=== PATIENT | male | born 1955 ===

== ENCOUNTER 2022-07-18 10:04 | Day surgery (SDC) | payer BC ==
[~2022-07-18] VITALS: Ht 172.7 cm; Wt 76.3 kg
[~2022-07-18 10:04] MED LIST: LEVSOD100 PO
--- NOTE | 2022-07-18 10:45 | NUR ---
07/18/22 1045 Tanya Harrington 1041 TETRACAINE TO LEFT EYE 1042 PLEDGET TO LEFT EYE BY [facility].G
[2022-07-18 11:51] VITALS: BP 116/70
--- NOTE | 2022-07-18 12:15 | NUR ---
07/18/22 1214 Randal Anton iv removed. site WNL.
== END 2022-07-18 12:08 | disposition home or self-care (01) ==
LOC: ORSCSDS 10:04
PROVIDERS: Ophthalmology
PROC: 08RK3JZ Replacement of Left Lens with Synthetic Substitute, Percutaneous Approach (ICD-10-PCS; principal; 2022-07-18 11:30)
DX: H25.12 Age-related nuclear cataract, left eye (principal); Z79.899 Other long term (current) drug therapy; H52.4 Presbyopia
CPT/HCPCS: J2250; J3010; J3301; J7040; V2632

== ENCOUNTER 2022-07-25 09:13 | Day surgery (SDC) | payer BC ==
[~2022-07-25] VITALS: Ht 172.7 cm; Wt 76.4 kg
--- NOTE | 2022-07-25 10:03 | NUR ---
07/25/22 Flavio3 Christy Kimball 0946 JENISE 0945
[2022-07-25 10:52] VITALS: BP 108/67
== END 2022-07-25 11:00 | disposition home or self-care (01) ==
LOC: ORSCSDS 09:13
PROVIDERS: Ophthalmology
PROC: 08RJ3JZ Replacement of Right Lens with Synthetic Substitute, Percutaneous Approach (ICD-10-PCS; principal; 2022-07-25 10:30)
DX: H25.11 Age-related nuclear cataract, right eye (principal); Z96.1 Presence of intraocular lens; E03.9 Hypothyroidism, unspecified; Z79.899 Other long term (current) drug therapy
CPT/HCPCS: J2250; J3010; J3301; J7040; V2632